=== PATIENT | female | born 1955 | race African-American/Black ===

== ENCOUNTER 2016-10-28 09:35 | Outpatient (CLI) | payer OTHER ==
[2016-10-28 10:08] LABS: Anion Gap 16 mmol/L (10-20); BUN (Urea Nitrogen) 10 mg/dL (9.8-20.1); Calc. Creatinine Clearance 0 mL/min (70-130); Calcium 9.2 mg/dL (7.8-10.44); Carbon Dioxide 26 mmol/L (23-31); Chloride 106 mmol/L (98-107); Estimated GFR-MDRD 82; Glucose 86 mg/dL (80-115); Potassium 4.3 mmol/L (3.5-5.1); Sodium 144 mmol/L (136-145)
== END 2016-10-28 09:36 | disposition home or self-care (01) ==
LOC: MADLABBHPM 09:35
PROVIDERS: ATTEND Family Medicine
DX: E87.6 Hypokalemia (principal)
CPT/HCPCS: 36415; 80048

== ENCOUNTER 2017-01-19 10:36 | Outpatient (CLI) | payer OTHER ==
[2017-01-19 10:57] LABS: #Eosinphils 0.2 thou/uL (0.0-0.7); #Lymphocytes 1.9 thou/uL (1.20-3.40); #Monocytes 0.5 thou/uL (0.11-0.59); #Neutrophils 2.9 thou/uL (1.40-6.50); %Basophils 0.3 % (0.0-1.0); %Lymphocytes 33.8 % (21.0-51.0); %Monocytes 9.7 % (0.0-10.0); %Neutrophils 53.2 % (42.0-75.0); Hemoglobin 14.4 g/dL (12.0-16.0); Mean Corpuscular HGB CONC 31.1 g/dL (32.0-36.0); Mean Corpuscular Hemoglobin 27.6 pg (27.0-31.0); Mean Corpuscular Volume 88.8 fl (81.0-99.0); Mean Platelet Volume 8.9 fL (7.4-10.4); Platelet Count 299 thou/uL (130-400); RBC Distribution Width 13.2 % (11.5-14.5); Red Blood Cell (RBC) Count 5.19 mill/uL (4.20-5.40); White Blood Cell (WBC) Count 5.5 thou/uL (4.8-10.8)
[2017-01-19 11:15] LABS: ALT (SGPT) 10 U/L (0-55); AST (SGOT) 14 U/L (5-34); Albumin 3.8 g/dL (3.4-4.8); Alkaline Phosphatase 159 U/L (40-150); Anion Gap 14 mmol/L (10-20); BUN (Urea Nitrogen) 9 mg/dL (9.8-20.1); Bilirubin, Direct 0.2 mg/dL (0.1-0.3); Bilirubin, Total 0.5 mg/dL (0.2-1.2); Calc. Creatinine Clearance 0 mL/min (70-130); Calcium 9.3 mg/dL (7.8-10.44); Carbon Dioxide 28 mmol/L (23-31); Cardiac Risk 3.9 (Less than 4.5); Chloride 104 mmol/L (98-107); Cholesterol 137 mg/dL (< 200 Desired); Estimated GFR-MDRD 88; Glucose 88 mg/dL (80-115); HDL Cholesterol 35 mg/dL (>60 Neg Risk); LDL Cholesterol, Calculated 82 mg/dL; Protein, Total 7.4 g/dL (5.8-8.1); Sodium 142 mmol/L (136-145); Triglycerides 102 mg/dL (Less than 150)
== END 2017-01-19 10:37 | disposition home or self-care (01) ==
LOC: MADLABBHPM 10:36
PROVIDERS: ATTEND Family Medicine
DX: E87.6 Hypokalemia (principal); E66.3 Overweight; I10 Essential (primary) hypertension
CPT/HCPCS: 36415; 80048; 80061; 80076; 84443; 85025

== ENCOUNTER 2017-03-14 08:40 | Outpatient (CLI) | payer OTHER ==
[2017-03-14 09:14] LABS: #Eosinphils 0.1 thou/uL (0.0-0.7); #Lymphocytes 1.2 thou/uL (1.20-3.40); #Monocytes 0.4 thou/uL (0.11-0.59); #Neutrophils 3.8 thou/uL (1.40-6.50); %Basophils 0.4 % (0.0-1.0); %Eosinophils 1.7 % (0.0-10.0); %Lymphocytes 22.5 % (21.0-51.0); %Monocytes 6.6 % (0.0-10.0); %Neutrophils 68.8 % (42.0-75.0); Hemoglobin 13.8 g/dL (12.0-16.0); Mean Corpuscular HGB CONC 32.2 g/dL (32.0-36.0); Mean Corpuscular Hemoglobin 27.6 pg (27.0-31.0); Mean Corpuscular Volume 85.8 fl (81.0-99.0); Mean Platelet Volume 9.8 fL (7.4-10.4); Platelet Count 238 thou/uL (130-400); RBC Distribution Width 13.5 % (11.5-14.5); Red Blood Cell (RBC) Count 4.99 mill/uL (4.20-5.40); White Blood Cell (WBC) Count 5.5 thou/uL (4.8-10.8)
[2017-03-14 09:20] LABS: ALT (SGPT) 11 U/L (8-55); AST (SGOT) 12 U/L (5-34); Albumin 3.7 g/dL (3.4-4.8); Alkaline Phosphatase 142 U/L (40-150); Anion Gap 17 mmol/L (10-20); BUN (Urea Nitrogen) 13 mg/dL (9.8-20.1); Bilirubin, Direct 0.2 mg/dL (0.1-0.3); Bilirubin, Total 0.4 mg/dL (0.2-1.2); Calc. Creatinine Clearance 0 mL/min (70-130); Calcium 9.2 mg/dL (7.8-10.44); Carbon Dioxide 26 mmol/L (23-31); Cardiac Risk 3.6 (Less than 4.5); Chloride 104 mmol/L (98-107); Cholesterol 127 mg/dl (< 200 Desired); Estimated GFR-MDRD 67; Glucose 130 mg/dL (80-115); HDL Cholesterol 35 mg/dL (>60 Neg Risk); LDL Cholesterol, Calculated 73 mg/dL; Potassium 3.8 mmol/L (3.5-5.1); Protein, Total 7.4 g/dL (6.0-8.3); Sodium 143 mmol/L (136-145); Triglycerides 94 mg/dL (Less than 150)
== END 2017-03-14 08:41 | disposition home or self-care (01) ==
LOC: MADLABBHPM 08:40
PROVIDERS: ATTEND Family Medicine
DX: E87.6 Hypokalemia (principal); E66.3 Overweight; I10 Essential (primary) hypertension
CPT/HCPCS: 36415; 80048; 80061; 80076; 84443; 85025

== ENCOUNTER 2017-06-12 18:53 | Emergency (ER) | payer OTHER ==
[2017-06-12] MEDS ORDERED: Acetaminophen/Codeine 30-300mg Tablet ONE (19:58)
[2017-06-12] MEDS ORDERED: Naproxen 500 MG TAB ONE (19:58)
--- NOTE | 2017-06-12 20:16 | RAD ---
EXAM: LEFT KNEE FOUR VIEWS 06/12/17 HISTORY: Fall. Pain. COMPARISON: None. FINDINGS: Enthesopathic change involving the superior and inferior aspect of the patella. No joint effusion. M ild left medial compartment joint space height. No fracture or malalignment. IMPRESSION: No fracture. POS: [facility]
== END 2017-06-12 20:13 | disposition home or self-care (01) ==
LOC: MADERS 18:53
DX: S80.02XA Contusion of left knee, initial encounter (principal); I10 Essential (primary) hypertension; E78.5 Hyperlipidemia, unspecified; Z79.899 Other long term (current) drug therapy; W19.XXXA Unspecified fall, initial encounter

== ENCOUNTER 2017-11-23 07:26 | Outpatient (CLI) | payer OTHER ==
[2017-11-23 08:16] LABS: ALT (SGPT) 10 U/L (8-55); AST (SGOT) 12 U/L (5-34); Albumin 3.8 g/dL (3.4-4.8); Alkaline Phosphatase 142 U/L (40-150); Anion Gap 15 mmol/L (10-20); BUN (Urea Nitrogen) 15 mg/dL (9.8-20.1); Bilirubin, Direct 0.2 mg/dL (0.1-0.3); Bilirubin, Total 0.6 mg/dL (0.2-1.2); Calc. Creatinine Clearance 0 mL/min (70-130); Calcium 9.3 mg/dL (7.8-10.44); Carbon Dioxide 29 mmol/L (23-31); Cardiac Risk 3.8 (Less than 4.5); Chloride 103 mmol/L (98-107); Cholesterol 143 mg/dl (< 200 Desired); Estimated GFR-MDRD 82; Glucose 88 mg/dL (80-115); HDL Cholesterol 38 mg/dL (>60 Neg Risk); LDL Cholesterol, Calculated 83 mg/dL; Potassium 3.7 mmol/L (3.5-5.1); Protein, Total 7.6 g/dL (6.0-8.3); Sodium 143 mmol/L (136-145); Triglycerides 108 mg/dL (Less than 150)
== END 2017-11-23 07:27 | disposition home or self-care (01) ==
LOC: MADLABBHPM 07:26
PROVIDERS: ATTEND Family Medicine
DX: E78.00 Pure hypercholesterolemia, unspecified (principal); I10 Essential (primary) hypertension
CPT/HCPCS: 36415; 80048; 80061; 80076

== ENCOUNTER 2018-02-20 11:16 | Outpatient (CLI) | payer OTHER ==
[2018-02-20 12:09] LABS: #Eosinphils 0.1 thou/uL (0.0-0.7); #Lymphocytes 1.7 thou/uL (1.20-3.40); #Monocytes 0.5 thou/uL (0.11-0.59); #Neutrophils 3.3 thou/uL (1.40-6.50); %Basophils 0.6 % (0.0-1.0); %Eosinophils 1.1 % (0.0-10.0); %Lymphocytes 30.1 % (21.0-51.0); %Monocytes 8.4 % (0.0-10.0); %Neutrophils 59.8 % (42.0-75.0); AST (SGOT) 16 U/L (5-34); Albumin 3.7 g/dL (3.4-4.8); Anion Gap 21 mmol/L (10-20); BUN (Urea Nitrogen) 13 mg/dL (9.8-20.1); Bilirubin, Total 0.6 mg/dL (0.2-1.2); Calc. Creatinine Clearance 0 mL/min (70-130); Calcium 9.6 mg/dL (7.8-10.44); Carbon Dioxide 15 mmol/L (23-31); Cardiac Risk 3.3 (Less than 4.5); Chloride 107 mmol/L (98-107); Cholesterol 144 mg/dl (< 200 Desired); Estimated GFR-MDRD 84; Globulin 4.4 g/dL (2.4-3.5); Glucose 74 mg/dL (80-115); HDL Cholesterol 44 mg/dL (>60 Neg Risk); Hemoglobin 15.1 g/dL (12.0-16.0); LDL Cholesterol, Calculated 81 mg/dL; Mean Corpuscular HGB CONC 32.2 g/dL (32.0-36.0); Mean Corpuscular Hemoglobin 28.1 pg (27.0-31.0); Mean Corpuscular Volume 87.2 fl (81.0-99.0); Mean Platelet Volume 9.1 fL (7.4-10.4); Platelet Count 245 thou/uL (130-400); Potassium 3.7 mmol/L (3.5-5.1); Protein, Total 8.1 g/dL (6.0-8.3); RBC Distribution Width 13.1 % (11.5-14.5); Sodium 139 mmol/L (136-145); Triglycerides 94 mg/dL (Less than 150); White Blood Cell (WBC) Count 5.6 thou/uL (4.8-10.8)
[2018-02-20 17:11] LABS: Hemoglobin A1c 5.7 % (4.0-6.0)
== END 2018-02-20 11:17 | disposition home or self-care (01) ==
LOC: MADLAB 11:16
PROVIDERS: ATTEND Family Medicine
DX: E78.00 Pure hypercholesterolemia, unspecified (principal)
CPT/HCPCS: 36415; 80053; 80061; 83036; 84443; 85025

== ENCOUNTER 2019-10-03 07:31 | Outpatient (CLI) | payer OTHER ==
[2019-10-03 08:09] LABS: ALT (SGPT) 14 U/L (8-55); AST (SGOT) 14 U/L (5-34); Alkaline Phosphatase 142 U/L (40-110); Anion Gap 15 mmol/L (10-20); BUN (Urea Nitrogen) 14 mg/dL (9.8-20.1); Bilirubin, Direct 0.2 mg/dL (0.1-0.3); Bilirubin, Total 0.5 mg/dL (0.2-1.2); Calc. Creatinine Clearance 0 mL/min (70-130); Calcium 9.6 mg/dL (7.8-10.44); Carbon Dioxide 27 mmol/L (23-31); Cardiac Risk 3.7 (Less than 4.5); Chloride 103 mmol/L (98-107); Cholesterol 156 mg/dl (< 200 Desired); Estimated GFR-MDRD 73; Glucose 94 mg/dL (80-115); HDL Cholesterol 42 mg/dL (>60 Neg Risk); LDL Cholesterol, Calculated 97 mg/dL; Potassium 3.7 mmol/L (3.5-5.1); Protein, Total 7.9 g/dL (6.0-8.3); Sodium 141 mmol/L (136-145); Triglycerides 86 mg/dL (Less than 150)
== END 2019-10-03 07:32 | disposition home or self-care (01) ==
LOC: MADLABBHPM 07:31
PROVIDERS: ATTEND Family Medicine
DX: E87.6 Hypokalemia (principal)
CPT/HCPCS: 36415; 80048; 80061; 80076

== ENCOUNTER 2023-01-08 22:22 | Emergency (ER) | payer MEDICARE, MEDICAID ==
[~2023-01-08 22:22] MED LIST: Iopamidol 370 76% 100 ML VIAL ONE
[2023-01-08 23:42] LABS: Band 9 % (5-11); Hemoglobin 14.5 g/dL (12.0-16.0); Lymphocytes 3 % (21-51); MDiff Complete? YES; Mean Corpuscular HGB CONC 32.3 g/dL (32.0-36.0); Mean Corpuscular Hemoglobin 27.9 pg (27.0-31.0); Mean Corpuscular Volume 86.5 fl (78.0-98.0); Mean Platelet Volume 9.6 fL (7.4-10.4); Monocytes 4 % (0-10); Neutrophil 83 % (42-75); Platelet Count 214 10x3/uL (130-400); RBC Distribution Width 12.2 % (11.5-14.5); RBC Morphology Normal; White Blood Cell (WBC) Count 13.1 10x3/uL (4.8-10.8)
[2023-01-08 23:50] LABS: ALT (SGPT) 30 U/L (8-55); AST (SGOT) 40 U/L (5-34); Albumin 4.2 g/dL (3.4-4.8); Alkaline Phosphatase 115 U/L (40-110); Anion Gap 18 mmol/L (10-20); BUN (Urea Nitrogen) 12 mg/dL (9.8-20.1); Bilirubin, Total 0.9 mg/dL (0.2-1.2); Calc. Creatinine Clearance 0 mL/min (70-130); Calcium 9.7 mg/dL (7.8-10.44); Carbon Dioxide 26 mmol/L (23-31); Chloride 95 mmol/L (98-107); Estimated GFR 72; Globulin 4.6 g/dL (2.4-3.5); Glucose 134 mg/dL (80-115); Potassium 3.7 mmol/L (3.5-5.1); Protein, Total 8.8 g/dL (5.8-8.1); Sodium 135 mmol/L (136-145)
[2023-01-09] MEDS ORDERED: Ondansetron ODT 4 MG TAB ONE (01:22)
[2023-01-09] MEDS ORDERED: Ketorolac Tromethamine 30 MG/ML VIAL ONE (06:14)
[2023-01-09 06:49] LABS: Bicarbonate (HCO3v) 23.2 mmol/L (22.0-28.0); CO2 Tension (PvCO2) 30.3 mmHg (42.0-51.0); Calcium, Ionized 0.93 mmol/L (1.15-1.33); Chloride 95 mmol/L (98-107); Hemoglobin - Calc 15.9 g/dL (12.0-16.0); Potassium 3.3 mmol/L (3.5-5.1); Sodium 133 mmol/L (138-145); T. Carbon Dioxide 24.1 mmol/L (22.0-28.0); vO2 Saturation-calc 95.3 % (60.0-85.0)
[2023-01-09 07:27] LABS: Bilirubin Negative (Negative); Blood, Urine Small (Negative); Clarity Clear (Clear); Glucose, Urine (Dipstick) Negative (Negative); Ketone, Urine 15 mg/dL (Negative); Leukocyte Negative (Negative); Nitrite Negative (Negative); Protein, Urine (Dipstick) 30 mg/dL (Neg-Trace); pH, Urine 5.5 (5.0-9.0)
[2023-01-09 07:43] LABS: Bacteria/HPF None Seen HPF (None Seen); RBC/HPF 0-3 HPF (0-3); WBC/HPF 0-3 HPF (0-3)
[2023-01-09] MEDS ORDERED: Sodium Chloride 0.9% 500 ML ONE (08:00)
[2023-01-09] MEDS ORDERED: cefTRIAXone\\ROCEPHIN 2 GM VIAL ONE (08:00)
[2023-01-09] MEDS ORDERED: Azithromycin 500 MG VIAL ONE (08:08)
[2023-01-09] MEDS ORDERED: Sodium Chloride 0.9% 250 ML 250 ML ONE (08:08)
== END 2023-01-09 09:30 | disposition home or self-care (01) ==
LOC: MADERS 22:22
DX: J18.9 Pneumonia, unspecified organism (principal); M27.40 Unspecified cyst of jaw; D72.829 Elevated white blood cell count, unspecified; E78.00 Pure hypercholesterolemia, unspecified; I10 Essential (primary) hypertension
CPT/HCPCS: 70490; 70491; 71045; 74176; 80053; 81003; 81015; 82330; 82435; 82803; 83605; 83735; 83880; 84132; 84295; 84484; 85014; 85025; 87081; 87430; 87804; 96365; 96375; J0456; J0696; J1885; J7030; J7050; Q0162; Q9967